=== PATIENT | male | born 1965 | race Caucasian/White ===

== ENCOUNTER → 2020-04-05 14:33 | Outpatient (CLI) | payer OTHER, SELFPAY ==
--- NOTE | 2020-04-05 14:40 | RAD_ITS ---
STUDY: X-RAY CHEST REASON FOR EXAM: Male, 54 years old. Dermatomyositis Dyspnea, short of breath TECHNIQUE: Frontal and lateral views of the chest. COMPARISON: None. FINDINGS: The lungs are clear and expanded. There is no demonstrated pleural abnormality. Normal size heart. Normal mediastinum and michel. Normal visualized pulmonary arteries. Normal visualized aortic arch and descending thoracic aorta. Normal visualized thoracic spine. Normal visualized ribs, clavicles, and shoulders. There is no demonstrated abnormality of the visualized soft tissue structures of the upper abdomen. RAD/Chest PA and Lateral IMPRESSION: Normal x-ray examination of the chest. Electronically Signed: Surya Ly MD at 21:00 EDT Tel , Service support ,
== END ==
PROVIDERS: PCP Family Medicine; Referring Provider Internal Medicine Pulmonary Disease; Visit Provider Internal Medicine Pulmonary Disease
DX: R06.00 Dyspnea, unspecified (principal); M33.90 Dermatopolymyositis, unspecified, organ involvement unspecified
CPT/HCPCS: 71046

== ENCOUNTER → 2020-04-12 06:37 | Outpatient (CLI) | payer OTHER, SELFPAY ==
--- NOTE | 2020-04-06 16:20 | RAD_ITS ---
STUDY: X-RAY - ORBITS REASON FOR EXAM: Male, 54 years old. Pre-MRI orbits TECHNIQUE: 2 view(s) of the orbits were obtained. COMPARISON: None. FINDINGS: Normal bilateral orbits without a metallic orbital foreign body. Normal visualized facial bones. Normal paranasal sinuses. The soft tissue structures are unremarkable. RAD/Orbits for Foreign Body IMPRESSION: No demonstrated metallic orbital foreign body. The patient is cleared for an MRI examination. Electronically Signed: Eric Gerber MD at 16:35 EDT , Service support ,
--- NOTE | 2020-04-12 06:40 | MRI_ITS ---
ACR Level 3 findings have been noted. An addendum which confirms receipt of the report will follow. STUDY: MRI BRAIN WITH AND WITHOUT CONTRAST REASON FOR EXAM: Male, 55 years old. Optic neuropathy, poor vision test, TECHNIQUE: Standardized multiplanar fat and water weighted pulse sequences were obtained. 14 mL of IV Dotarem was administered for the contrast portion of the examination. COMPARISON: None. FINDINGS: No restricted diffusion. Near symmetrical thickening of the dura overlying the cerebral hemispheres enhanced with intravenous contrast. No mass effects and no midline shift. Normal ventricles and cisterns. Normal white matter tracts of the supratentorial brain. Normal bilateral basal ganglia. Normal thalami. Normal flow voids within the major intracranial circulation suggesting patency by spin echo criteria. Normal venous enhancement. There is no enhancing intra-axial or extra-axial abnormality. Normal sella turcica, pituitary gland, infundibular stalk, optic chiasm and hypothalamus. Normal tectal plate and pineal gland. Normal midbrain, flori and medulla. Normal cerebellum. Normal basal cisterns. Normal bilateral temporal bones. Normal bilateral internal auditory canals. No demonstrated orbital abnormality, within the constraints of a routine brain study. Normal visualized paranasal sinuses. Normal calvarium and skull base. Normal visualized soft tissue structures. Normal visualized upper cervical spine. MRI/Brain W/WO Contrast IMPRESSION: 1. Near symmetrical thickening and contrast enhancement of the dura overlying the cerebral hemispheres. Etiology is unknown. CSF correlation may be helpful for further evaluation. 2. The brain, ventricles and cisterns are normal with and without contrast. Electronically Signed: Doe Ulloa MD at 9:39 EDT , Service support ,
== END ==
PROVIDERS: PCP Family Medicine; Referring Provider Ophthalmology; Visit Provider Ophthalmology
DX: H46.8 Other optic neuritis (principal)
CPT/HCPCS: 70030; 70553; A9575

== ENCOUNTER → 2020-04-25 15:14 | Outpatient (CLI) | payer OTHER, SELFPAY | PROVIDERS: PCP Family Medicine; Referring Provider Dermatology; Visit Provider Internal Medicine Pulmonary Disease | DX: M33.12 Other dermatomyositis with myopathy (principal); L29.8 Other pruritus; R06.00 Dyspnea, unspecified | CPT/HCPCS: 36415 ==

== ENCOUNTER → 2024-07-30 | Outpatient (CLI) | payer OTHER, SELFPAY ==
--- NOTE | 2024-07-30 08:48 | US_ITS ---
STUDY: ABDOMINAL ULTRASOUND - RIGHT UPPER QUADRANT; ELASTOGRAPHY REASON FOR VISIT: Male, 59 years old. Long-term methotrexate use. TECHNIQUE: Ultrasound evaluation of the right upper quadrant was performed with real-time and static watson-scale imaging. Point quantification shear wave elastography was performed (NONO). TECHNICAL QUALITY: Adequate. COMPARISON: None. FINDINGS: Liver: The liver measures 15.1 cm. There is normal echogenicity of the liver. The bile ducts are within normal limits. There is hepatic color flow. The direction of portal flow is hepatopetal. There is a 2.3 cm x 2.9 cm x 1.6 cm heterogeneous nodular density in the inferior aspect of the left lobe of liver. Increased vascularity is seen. A similar appearing nodular density measuring 1 cm x 1.4 cm x 1.3 cm is seen in the left lobe. Increased vascularity is seen. Correlation with the CT scan of the abdomen is recommended. Median liver stiffness measured 5 kPa. Gallbladder: Normal distended gallbladder. The gallbladder wall measures 0.9 mm. There is a negative sonographic Mcclellan''s sign. There is no pericholecystic fluid. There are no gallstones. Common Bile Duct (C.B.D.): The common bile duct measures 3 mm. Pancreas: There is normal echogenicity of the visualized pancreas. There is no demonstrated pancreatic mass or cyst. Right Kidney: Normal size of the right kidney. The right kidney measures 11.6 cm x 4.7 cm x 4.9 cm. Normal renal cortex. The right cortex measures 1. cm. There is no demonstrated renal mass or cyst. There is no right hydronephrosis. US/ABD Limited w/ Elastography IMPRESSION: 1. Liver stiffness measures 5 kPa compatible with F0-F1 (Normal to mild liver fibrosis) Metavir score. 2. There are 2 heterogeneous solid nodule in the left lobe of the liver as described. Correlation with a CT scan is recommended. Electronically Signed: Hilton Farfan MD at 15:00 EDT ,
== END | disposition home or self-care (01) ==
LOC: US 08:42
PROVIDERS: PCP Family Medicine; Referring Provider Student in an Organized Health Care Education/Training Program; Visit Provider Student in an Organized Health Care Education/Training Program
DX: K76.89 Other specified diseases of liver (principal); Z79.631 Long term (current) use of antimetabolite agent
CPT/HCPCS: 76705; 76981